=== PATIENT | male | born 1975 | race Caucasian/White ===

== ENCOUNTER → 2017-02-17 | Outpatient (CLI) | payer OTHER ==
[~2017-02-17] VITALS: Ht 177.8 cm; Wt 122.5 kg
[~2017-02-17] MED LIST: BENTYL10 MG PO; CIALIS20 MG PO; COLESTID1 GM PO; DULCOLAX STOOL100 MG PO; FLEXERIL PO; GLUCOPHAGE500 MG PO; HYDROCODON-ACE1 EAC7 PO; LEVAQUIN 500 M500 M2 PO; LEVAQUIN 500 M500 MG PO; LIPITOR10 MG PO; LISINOPRIL10 MG PO; MULTIVITAMINS1 EAC7 PO; PERCOCET 7.5-31 EACH PO; TUSSIONEX PENN473 ML PO; VENTOLIN HFA 1818 GM INH
--- NOTE | ~2017-02-17 | HPC ---
[facility] [place] [address] PAIN MANAGEMENT CONSULTATION Name: HALLIE ROLDAN Room #: REG [facility] Dewey#: [id number] Admission: 02/17/17 Attend Phys: Orion Mcconnell DO Discharge: Date of : 79 Report #: [id number] THIS REPORT FOR: //name// CC: Orion Ly DATE OF SERVICE: 02/17/2017 REFERRING PHYSICIAN: Orion Barrientos DO CHIEF COMPLAINT: Low back pain, left lower extremity pain with paresthesias. HISTORY OF PRESENT ILLNESS: As you know, the patient is a 41-year-old male who has had a longstanding history of low back pain, lower extremity pain with paresthesias. The patient "has just dealt with it." He indicates that his pain intensified recently for which he discussed with his primary care physician who then referred the patient to imaging, once imaging was obtained showing the findings at the L4-L5 level, the patient was subsequently referred to our clinic to trial epidural injections under fluoroscopic guidance. The patient indicates pain is periodic, describes the pain as burning, aching, pulling, stabbing, and throbbing, places current pain score 1-2/10, daily average at 8/10, worst pain has been is 9-10/10. He indicates that lifting and bending exacerbate symptoms, lying down appears to improve pain. He has been referred to our service to discuss epidural injections under fluoroscopic guidance. PAST MEDICAL HISTORY: 1. Hypertension. 2. Diabetes mellitus type 2. 3. Dyslipidemia. 4. Morbid obesity. PAST SURGICAL HISTORY: Cholecystectomy. SOCIAL HISTORY: The patient denies tobacco, IV or illicit drug use. 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 He is not in litigation in regards to pain. REVIEW OF SYSTEMS: Positive for fatigue and weakness, changes in bowel movements, diarrhea, frequent urination, numbness and tingling sensations, thyroid disease, heat and cold intolerance, slow to heal after cuts, morbid obesity. All other review of systems negative per 12-point review of systems other than those listed in history of present illness. PAIN IMPACT SCORE: 24 indicating [id number] interference of daily [address] [address] PAIN MANAGEMENT CONSULTATION Name: HALLIE ROLDAN Room #: REG [facility] Sim.#: [id number] Admission: 02/17/17 Attend Phys: Orion Mcconnell DO Discharge: Date of : 79 Report #: [id number] activities secondary to pain. ALLERGIES: No known drug allergies. CURRENT MEDICATIONS: Colestid 1 g once a day, Percocet 7.5/325 one tab every 6 hours p.r.n. for pain, Flexeril 10 mg 3 times a day, atorvastatin 10 mg per day, albuterol 2 puffs q.4 hours, multivitamin 1 tab per day, metformin 500 mg twice a day, and lisinopril 10 mg once a day. IMAGING: MRI lumbar spine obtained 08/21/2016, shows T12-L1 unremarkable, L1-L2 unremarkable, L2-L3 unremarkable, L3-L4 unremarkable, L4-L5 shows a right paracentral disk protrusion measuring 8 mm anterior posterior and 15 mm craniocaudal of the ventral thecal sac causing central canal narrowing to approximately 8 mm, right lateral recess stenosis, effacement of multiple nerve roots within the central canal, particularly the right L5 nerve root; mild bilateral neural foraminal narrowing noted. L5-S1, left paracentric disk protrusion measuring 12 mm x 15 mm posterior zone of hyperintensity. This extends to the left lateral recess displacing the left S1 nerve root. No significant central canal stenosis. PHYSICAL EXAMINATION: VITAL SIGNS: Blood pressure 122/76, pulse 72, respiratory rate 16 and unlabored, the patient is 98% on room air, height 5 feet 10 inches tall, weight 270 pounds, and BMI calculated 38.7. GENERAL: Well-developed, well-nourished, well-hydrated, morbidly obese 41-year-old male, appears older than stated age, placing current pain score 1-2/10. HEENT: Normocephalic, atraumatic. Pupils are equal, round, reactive to light. Extraocular muscles are intact. Sclerae nonicteric without injection. NEUROLOGIC: Cranial nerves 2-12 are grossly intact. Speech is fluent. The patient deemed a fair historian. LUNGS: Clear. No wheezes, rhonchi, or rales. CARDIOVASCULAR: Regular. No appreciable gallop or rub. ABDOMEN: Soft, obese, nontender, nondistended, normoactive bowel sounds. EXTREMITIES: Show no clubbing, no cyanosis, and no edema. MUSCULOSKELETAL: Lower extremity strength appears equal and symmetrical 5/5, intact to light touch from L1 through S2 dermatomes. Deep tendon reflexes equal and symmetrical at patella and Achilles. Ankle clonus negative. Babinski is negative. Seated straight leg raising negative. Supine straight leg raising positive on the left. Phuong test negative. Modified Gaenslen's positive for axial low back pain. Gait appears antalgic favoring left lower extremity over right. Stance is slightly forward flexed. ASSESSMENT: 1. Symptomatic lumbar radiculopathy. 2. Displacement of lumbar intervertebral disk with radiculopathy. [facility] [address] [place] [address] PAIN MANAGEMENT CONSULTATION Name: HALLIE ROLDAN Room #: REG CL Sim.#: [id number] Admission: 02/17/17 Attend Phys: Orion Mcconnell DO Discharge: Date of : 79 Report #: [id number] 3. Lumbosacral spondylosis with radiculopathy. 4. Lumbar degeneration. 5. Chronic intractable plain. PLAN: 1. Based on today's physical exam, the history the patient has provided, the description the patient uses in regards to pain as well as location of symptoms and the findings on his MRI likely source of the patient's pain is lumbar radiculopathy. The patient and I discussed at length treatment options for lumbar radicular pain based on the findings on physical exam and MRI. We discussed physical therapy, stretching exercises, core strengthening and a concerted effort at weight loss, we discussed medication management with addition of a neuropathic pain medication in conjunction with his current medications being provided by his primary care physician, we discussed epidural injection under fluoroscopic guidance for which the patient was referred to our clinic, spinal cord stimulator therapy and surgical options. After reviewing the risks and benefits of all proposed treatment options, the patient chose to undergo an epidural injection under fluoroscopic guidance. The patient was advised of the risks and the benefits of a lumbar epidural injection. These risks include, but are not necessarily limited to bleeding, bruising, infection, worsening of pain, no relief of pain, also risk of temporary or permanent muscle weakness, temporary or permanent nerve damage, possible paralysis and . The patient states understood and wished to proceed. 2. No medication changes were made at today's visit. The patient will continue current medical therapy as previously prescribed. 3. We will see the patient back in followup visit 3 weeks from today. At that time, we will review efficacy of today's epidural injection and determine if a repeat injection might be necessary. PROCEDURE NOTE DESCRIPTION OF PROCEDURE: L5-S1 left paramedian epidural steroid injection under fluoroscopic guidance. This is the first procedure of the first series that the patient is undergoing. After obtaining written consent, the patient was taken back to the fluoroscopy suite, placed in a prone position with pillow under the abdomen to decrease lumbar lordosis. The skin overlying the lumbosacral area was then prepped and draped in aseptic fashion. The L5-S1 vertebral interspace was then identified by AP fluoroscopy. The skin and subcutaneous tissue overlying the target site of injection was anesthetized with 3 mL 1% lidocaine. A 20-gauge 4-1/2-inch Tuohy needle was then advanced under fluoroscopic guidance [address] [address] PAIN MANAGEMENT CONSULTATION Name: HALLIE ROLDAN Room #: REG [facility] Palomo#: [id number] Admission: 02/17/17 Attend Phys: Orion Mcconnell DO Discharge: Date of : 79 Report #: [id number] towards the epidural space using a left paramedian approach. The epidural space was identified using loss of resistance to air technique. After negative aspiration for heme or cerebrospinal fluid, a total of 1 mL of Omnipaque was injected. A lumbar epidurogram was confirmed using both AP and lateral fluoroscopy. After negative aspiration for heme or cerebrospinal fluid, 5 mL of a solution containing 2 mL 40 mg per mL, 80 mg total triamcinolone, 3 mL lidocaine 1% was injected in increments. Contrast spread was noted posterior epidural space. The needle was then retracted approximately half way and needle tract flushed with 1 mL of 1% lidocaine. Needle was then removed. There were no apparent sensory or motor deficits in the lower extremity following the procedure. A sterile bandage was placed over the injection site. The heart rate, pulse, oximetry and blood pressure were continuously monitored after the procedure. There were no apparent complications. The patient tolerated the procedure well and was carefully escorted to the recovery room in stable condition. There were no apparent complications. After meeting discharge criteria, the patient was then discharged home. By: [id number] Orion Mcconnell DO /nt
[2017-02-17 09:58] VITALS: BP 122/76
== END | disposition home or self-care (01) ==
LOC: PAIN 07:10
DX: M51.16 Intervertebral disc disorders with radiculopathy, lumbar region (principal); G89.29 Other chronic pain; Z68.38 Body mass index [BMI] 38.0-38.9, adult; Z79.899 Other long term (current) drug therapy; I10 Essential (primary) hypertension; E11.9 Type 2 diabetes mellitus without complications; E78.5 Hyperlipidemia, unspecified; E66.01 Morbid (severe) obesity due to excess calories

== ENCOUNTER → 2017-03-10 | Outpatient (CLI) | payer OTHER ==
[~2017-03-10] VITALS: Ht 177.8 cm; Wt 121.6 kg
[~2017-03-10] MED LIST changes: +FLONASE 0.05%50 MCG NASAL; +GLUCOPHAGE1000 MG PO; -GLUCOPHAGE500 MG PO; +INVOKANA100 MG PO; +NEURONTIN 300300 M1 PO
--- NOTE | ~2017-03-10 | HPC ---
[facility] [place] [address] PAIN MANAGEMENT CONSULTATION Name: HALLIE ROLDAN [id number] Admission: 03/10/17 Attend Phys: Orion Mcconnell DO Discharge: Date of : 79 Report #: [id number] THIS REPORT FOR: //name// CC: Orion Ly DATE OF SERVICE: 03/10/2017 REFERRING PHYSICIAN: Orion Barrientos DO CHIEF COMPLAINT: Mid back pain, left lower extremity pain and paresthesias. HISTORY OF PRESENT ILLNESS: As you know, the patient is a 41-year-old male with longstanding history of low back pain, lower extremity pain with paresthesias involving the left buttock and posterolateral thigh. The patient indicates over the past he "just dealt with it." He returns today in followup visit after undergoing epidural injection under fluoroscopic guidance with no significant pain improvement. He reports pain level of 2/10, states pain is aching, stabbing and intermittent, describes the pain as exacerbated with lifting and bending, improves with lying down and medications being provided by his primary care physician. He returns today in followup visit indicating no improvement with epidural injection, wishing to move forward with other treatment options. ALLERGIES: No known drug allergies. CURRENT MEDICATIONS: Fluticasone 1 spray each nostril twice a day, Invokana 100 mg once a day, Colestid 1 gram per day, Percocet 7.5/325 one tab every 6 hours p.r.n. for pain, cyclobenzaprine 10 mg 3 times a day, atorvastatin 10 mg per day, albuterol 2 puffs q.4 hours p.r.n., multivitamin once a day, metformin 1000 mg twice a day, and lisinopril 10 mg once a day. IMAGING: No new imaging available. PHYSICAL EXAMINATION: VITAL SIGNS: Blood pressure 128/93, pulse 67, respiratory rate 16 and unlabored, the patient is 98% on room air, height 5 feet 10 inches tall, weight 268 pounds, and BMI calculated 38.5. GENERAL: Well-developed, well-nourished, well-hydrated, morbidly obese 41-year-old male, appears older than stated age, placing current pain score at around 2/10. HEENT: Normocephalic, atraumatic. Pupils are equal, round, and reactive to light. Extraocular muscles are intact. EXTREMITIES: Show no clubbing, no cyanosis, and no edema. MUSCULOSKELETAL: Lower extremity strength remains equal and symmetrical 5/5, intact to light touch from L1 through S2 dermatomes[place] [address] PAIN MANAGEMENT CONSULTATION Name: HALLIE ROLDAN Room #: REG [facility] Palomo#: [id number] Admission: 03/10/17 Attend Phys: Orion Mcconnell DO Discharge: Date of : 79 Report #: [id number] raising negative. Supine straight leg raising mildly positive left. Phuong's test negative. ASSESSMENT: 1. Symptomatic lumbar radiculopathy. 2. Displacement of lumbar intervertebral disk with radiculopathy. 3. Lumbosacral spondylosis with radiculopathy. 4. Lumbar degeneration. 5. Chronic intractable pain. PLAN: 1. The patient has returned today in followup visit indicating no improvement in pain with the epidural injection provided at last visit. I would not recommend continuing this therapy given the lack of any improvement even transiently with the injection itself. We would recommend the patient look towards medication management. After a very long discussion, the patient chose medication management, but does want to seek a surgical referral. 2. The patient has already seen Dr. Clarence Cordon, he can return to see Dr. Cordon about surgical options. Given the fact that he did not see improvement with the epidural injection, I do believe that surgical options may be necessary. He will make an appointment with Dr. Cordon at his earliest convenience to discuss options for surgical treatment. 3. Recommend starting the patient on gabapentin 300 mg dose 1 tab p.o. at bedtime for 5 nights, then 2 tabs p.o. at bedtime for 5 nights, then 3 tabs p.o. at bedtime for 5 nights, then 1 tab p.o. q.a.m., 3 tabs p.o. at bedtime, this will be the initiation of a neuropathic pain medication, this is the first of the dosing. Increasing the dosing would be recommended if he is not noticing improvement and no side effects with the medication provided. He was given #120 tablets and no refills. He can follow up with his PCP for continuation of the titration or return to see us in 1 month. <ELECTRONICALLY SIGNED> By: Orion Mcconnell DO 03/18/17 [id number] Orion Mcconnell DO /nt
[2017-03-10 09:58] VITALS: BP 128/93
== END | disposition home or self-care (01) ==
LOC: PAIN 06:44
DX: M51.16 Intervertebral disc disorders with radiculopathy, lumbar region (principal); M47.27 Other spondylosis with radiculopathy, lumbosacral region; G89.29 Other chronic pain; Z79.899 Other long term (current) drug therapy

== ENCOUNTER 2017-12-07 12:28 | Emergency (ER) | payer OTHER ==
[~2017-12-07] VITALS: Ht 177.8 cm; Wt 135.6 kg
[2017-12-07] MEDS ORDERED: VALIUM5 MG PO (13:37)
[2017-12-07] MEDS ORDERED: MEDROLDOSEPACK PO (13:37)
== END 2017-12-07 13:53 | disposition home or self-care (01) ==
LOC: ER 12:28
DX: M43.6 Torticollis (principal); E11.9 Type 2 diabetes mellitus without complications; Z87.891 Personal history of nicotine dependence

== ENCOUNTER → 2017-12-25 | Outpatient (CLI) | payer OTHER ==
[~2017-12-25] MED LIST changes: +MEDROLDOSEPACK PO; +VALIUM5 MG PO
== END ==
LOC: RAD 11:09
DX: M54.2 Cervicalgia (principal)